=== PATIENT | male | born 1950 | race Caucasian/White ===

== ENCOUNTER 2021-01-01 10:10 | Day surgery (SDC) | payer MEDICARE, BC ==
[~2021-01-01] VITALS: Ht 172.7 cm; Wt 77.2 kg
[2021-01-01] VITALS (10 sets, daily range): BP systolic 125–156; BP diastolic 65–95
[2021-01-01] MEDS: normal saline 1,000 ML IV SCH ×2 (10:55→17:20)
[2021-01-01] MEDS ORDERED: sodium bicarbonate (8.4%) inj. 75 ML in dextrose 5% water 500ml 500 ML IV ONE (10:55)
[2021-01-01] MEDS ORDERED: diphenhydrAMINE 25mg capsule PO PRN (10:55)
[2021-01-01] MEDS ORDERED: verapamil 2.5 mg/ml inj IV ONE (11:25)
[2021-01-01] MEDS ORDERED: fentaNYL/PF 50MCG/1 ML 2ML syringe ONE ×2 (11:25→13:56)
[2021-01-01] MEDS ORDERED: midazolam 1 mg/ML 2ml injection ONE ×4 (11:25→14:11)
[2021-01-01] MEDS ORDERED: LIDOcaine 1% (10mg/ml)w/preservative injection 20ml MDV ONE (11:25)
[2021-01-01] MEDS ORDERED: heparin 1,000 UNITS/NS 500ml 500 ML ONE ×3 (11:26→14:22)
[2021-01-01] MEDS ORDERED: heparin 1,000unit/ml 10ml vial 10 ML ONE (11:26)
[2021-01-01] MEDS ORDERED: iohexol 350 MG/ML 50ML vial IV ONE ×5 (11:26→14:19)
[2021-01-01] MEDS ORDERED: iohexol 350MG/ML 100ml bottle IV ONE ×2 (11:26→12:54)
[2021-01-01] MEDS ORDERED: nitroGLYCERIN-Tridil 50MG/D5W 250 ML IV ONE (11:26)
[2021-01-01 11:49] LABS: BASOPHILS # (AUTO) 0.1 X10'3 (0-0.2); BASOPHILS % (AUTO) 1.5 % (0-1); EOSINOPHILS # (AUTO) 0.2 X10'3 (0-0.9); EOSINOPHILS % (AUTO) 4.1 % (0-6); HEMATOCRIT 47.7 % (42.0-52.0); HEMOGLOBIN 16.1 g/dl (14.0-17.9); LYMPHOCYTES # (AUTO) 1.1 X10'3 (1.1-4.8); LYMPHOCYTES % (AUTO) 21.3 % (21-51); MEAN CORPUSCULAR HGB CONC 33.8 g/dL (33.0-36.5); MEAN CORPUSCULAR VOLUME 91.7 FL (78-98); MONOCYTES # (AUTO) 0.4 X10'3 (0-0.9); MONOCYTES % (AUTO) 7.6 % (2-12); NEUTROPHILS # (AUTO) 3.5 X10'3 (1.8-7.7); NEUTROPHILS % (AUTO) 65.5 % (42-75); PLATELET COUNT 182 X10'3 (140-440); RED CELL DISTRIBUTION WIDTH 13.2 % (11.5-14.5); WHITE BLOOD COUNT 5.3 X10'3 (4.5-11.0)
[2021-01-01 11:55] LABS: ALBUMIN 3.9 G/DL (3.4-5.0); ANION GAP 8 (8-16); BLOOD UREA NITROGEN 21 MG/DL (7-18); BUN/CREATININE RATIO 20.2 (5.4-32.0); CALCIUM 9.4 MG/DL (8.5-10.1); CHLORIDE 104 MMOL/L (99-107); CREATININE 1.04 MG/DL (0.60-1.10); GLUCOSE 95 MG/DL (70-104); MAGNESIUM 2.3 MG/DL (1.5-2.4); POTASSIUM 4.7 MMOL/L (3.5-5.1); SODIUM 141 MMOL/L (135-145); TOTAL CARBON DIOXIDE 28.8 MMOL/L (24-32); eGFR 71 ML/MIN
[2021-01-01] MEDS ORDERED: lidocaine patch (12:24)
[2021-01-01] MEDS ORDERED: BUPR1PAT TOP (12:25)
[2021-01-01] MEDS ORDERED: TRAZ-251 PO (12:25)
[2021-01-01] MEDS ORDERED: ZOLP5TAB8 PO (12:26)
[2021-01-01] MEDS ORDERED: ALPR-624 PO (12:26)
[2021-01-01] MEDS ORDERED: MELA3TAB39 PO (12:27)
[2021-01-01] MEDS ORDERED: DULO-31 PO (12:28)
[2021-01-01] MEDS ORDERED: GABA300C PO (12:29)
[2021-01-01] MEDS ORDERED: ALBU8HFA PO (12:30)
[2021-01-01] MEDS ORDERED: SOTA120T9 PO (12:32)
[2021-01-01] MEDS ORDERED: ALFU10TA10 PO (12:33)
[2021-01-01] MEDS ORDERED: LISI20TA28 PO (12:33)
[2021-01-01] MEDS ORDERED: APIX5TAB3 PO (12:34)
[2021-01-01] MEDS ORDERED: clopidogrel 300mg tablet ONE (14:36)
[2021-01-01] MEDS ORDERED: proCHLORperazine 10 MG/2 ml inj IV PRN (15:10)
[2021-01-01] MEDS ORDERED: ondansetron/PF 4mg/2ml inj IV PRN (15:10)
[2021-01-01] MEDS ORDERED: HYDROcodone/acetaminophen 5mg/325mg tablet PO PRN (15:10)
[2021-01-01] MEDS ORDERED: HYDROcodone/acetaminophen 10/325mg tab PO PRN (15:10)
[2021-01-01] MEDS ORDERED: furosemide 20 MG/2 ML vial IV ONE (16:00)
== END 2021-01-01 18:30 | disposition home or self-care (01) ==
LOC: SSTAY O 10:10
PROVIDERS: ATTEND Internal Medicine Cardiovascular Disease
DX: R94.39 Abnormal result of other cardiovascular function study (principal); I25.119 Atherosclerotic heart disease of native coronary artery with unspecified angina pectoris; I25.5 Ischemic cardiomyopathy; I25.2 Old myocardial infarction; E78.5 Hyperlipidemia, unspecified; I48.91 Unspecified atrial fibrillation; Z87.891 Personal history of nicotine dependence; Z88.8 Allergy status to other drugs, medicaments and biological substances; Z79.899 Other long term (current) drug therapy; Z98.890 Other specified postprocedural states; Z86.010 Personal history of colon polyps; Z80.0 Family history of malignant neoplasm of digestive organs; Z80.1 Family history of malignant neoplasm of trachea, bronchus and lung; Z80.42 Family history of malignant neoplasm of prostate
CPT/HCPCS: 36415; 80048; 83735; 85025; 85610; 93005; 93458; 99152; 99153; C1725; C1751; C1760; C1769; C1874; C1894; C9600; C9601; J1644; J1940; J2001; J2250; J3010; J7030; Q9967; A4620; A6258; J3490

== ENCOUNTER 2021-01-15 08:46 | Day surgery (SDC) | payer MEDICARE, BC ==
[2021-01-15] VITALS (9 sets, daily range): BP systolic 112–143; BP diastolic 51–90
[~2021-01-15] VITALS: Ht 172.7 cm; Wt 75.6 kg
[~2021-01-15 08:46] MED LIST: ALBU8HFA PO; ALFU10TA10 PO; ALPR-624 PO; APIX5TAB3 PO; BUPR1PAT TOP; DULO-31 PO; GABA300C PO; LISI20TA28 PO; MELA3TAB39 PO; SOTA120T9 PO; TRAZ-251 PO; ZOLP5TAB8 PO; lidocaine patch
[2021-01-15] MEDS ORDERED: diphenhydrAMINE 25mg capsule PO PRN (09:20)
[2021-01-15] MEDS ORDERED: ROSU20TA2 PO (09:37)
[2021-01-15] MEDS ORDERED: LISI20TA28 PO (09:37)
[2021-01-15] MEDS ORDERED: EZET10TA48 PO (09:37)
[2021-01-15] MEDS: normal saline 1,000 ML IV SCH ×2 (09:43→14:26)
[2021-01-15 09:50] LABS: EOSINOPHILS # (AUTO) 0.2 X10'3 (0-0.9); EOSINOPHILS % (AUTO) 4.3 % (0-6); HEMATOCRIT 46.5 % (42.0-52.0); HEMOGLOBIN 15.6 g/dl (14.0-17.9); LYMPHOCYTES # (AUTO) 0.9 X10'3 (1.1-4.8); LYMPHOCYTES % (AUTO) 23.4 % (21-51); MEAN CORPUSCULAR HEMOGLOBIN 31.3 PG (27.0-31.0); MEAN CORPUSCULAR HGB CONC 33.6 g/dL (33.0-36.5); MEAN CORPUSCULAR VOLUME 93.1 FL (78-98); MEAN PLATELET VOLUME 7.8 FL (7.4-10.4); MONOCYTES # (AUTO) 0.4 X10'3 (0-0.9); MONOCYTES % (AUTO) 9.3 % (2-12); NEUTROPHILS # (AUTO) 2.4 X10'3 (1.8-7.7); PLATELET COUNT 165 X10'3 (140-440); RED BLOOD COUNT 4.99 X10'6 (4.70-6.10); WHITE BLOOD COUNT 3.9 X10'3 (4.5-11.0)
[2021-01-15 09:52] LABS: ALBUMIN 3.8 G/DL (3.4-5.0); ANION GAP 8 (8-16); BLOOD UREA NITROGEN 16 MG/DL (7-18); BUN/CREATININE RATIO 15.5 (5.4-32.0); CALCIUM 8.6 MG/DL (8.5-10.1); CHLORIDE 108 MMOL/L (99-107); CREATININE 1.03 MG/DL (0.60-1.10); GLUCOSE 99 MG/DL (70-104); MAGNESIUM 2.2 MG/DL (1.5-2.4); POTASSIUM 4.2 MMOL/L (3.5-5.1); SODIUM 142 MMOL/L (135-145); TOTAL CARBON DIOXIDE 26.5 MMOL/L (24-32); eGFR 71 ML/MIN
[2021-01-15] MEDS ORDERED: LIDOcaine 1% (10mg/ml)w/preservative injection 20ml MDV ONE (10:59)
[2021-01-15] MEDS ORDERED: iohexol 350MG/ML 100ml bottle IV ONE ×2 (10:59→11:59)
[2021-01-15] MEDS ORDERED: fentaNYL/PF 50MCG/1 ML 2ML syringe ONE ×3 (10:59→13:14)
[2021-01-15] MEDS ORDERED: heparin 1,000unit/ml 10ml vial 10 ML ONE ×2 (10:59→12:52)
[2021-01-15] MEDS ORDERED: iohexol 350 MG/ML 50ML vial IV ONE ×2 (10:59→11:54)
[2021-01-15] MEDS ORDERED: midazolam 1 mg/ML 2ml injection ONE ×5 (10:59→13:18)
[2021-01-15] MEDS ORDERED: ticagrelor 90mg tablet ONE (13:30)
[2021-01-15] MEDS ORDERED: nitroGLYCERIN 0.4mg SUBLingual tab SL ONE (13:55)
[2021-01-15] MEDS ORDERED: nitroGLYCERIN 0.4mg SUBLingual tab SL PRN (14:15)
[2021-01-15] MEDS ORDERED: OXAZEpam 15mg capsule PO PRN (14:15)
[2021-01-15] MEDS ORDERED: proCHLORperazine 10 MG/2 ml inj IV PRN (14:15)
[2021-01-15] MEDS ORDERED: HYDROcodone/acetaminophen 10/325mg tab PO PRN (14:15)
[2021-01-15] MEDS ORDERED: HYDROcodone/acetaminophen 5mg/325mg tablet PO PRN (14:15)
[2021-01-15] MEDS ORDERED: ondansetron/PF 4mg/2ml inj IV PRN (14:15)
[2021-01-15] MEDS ORDERED: ACETYLCYSTEINE 200 MG/1 ML 4 ML ORAL SOLUTION PO SCH (20:00)
== END 2021-01-15 18:06 | disposition home or self-care (01) ==
LOC: SSTAY O 08:46
PROVIDERS: ATTEND Internal Medicine Cardiovascular Disease
DX: R94.39 Abnormal result of other cardiovascular function study (principal); I25.119 Atherosclerotic heart disease of native coronary artery with unspecified angina pectoris; I48.91 Unspecified atrial fibrillation; E78.5 Hyperlipidemia, unspecified; I25.2 Old myocardial infarction; I10 Essential (primary) hypertension; I25.5 Ischemic cardiomyopathy; Z95.5 Presence of coronary angioplasty implant and graft; Z79.899 Other long term (current) drug therapy; Z87.891 Personal history of nicotine dependence; Z98.890 Other specified postprocedural states; Z86.010 Personal history of colon polyps; Z80.1 Family history of malignant neoplasm of trachea, bronchus and lung; Z80.42 Family history of malignant neoplasm of prostate; Z80.0 Family history of malignant neoplasm of digestive organs; Z88.8 Allergy status to other drugs, medicaments and biological substances
CPT/HCPCS: 36415; 80048; 83735; 85025; 85610; 93005; 93458; 99152; 99153; C1725; C1751; C1760; C1769; C1874; C1892; C1894; C9600; J1644; J2001; J2250; J3010; J7030; Q0163; Q9967; A4620; A6258; C9601

== ENCOUNTER 2023-11-24 06:37 | Day surgery (SDC) | payer MEDICARE, BC ==
[2023-11-24] VITALS (10 sets, daily range): BP systolic 107–119; BP diastolic 59–72; PULSE 63–70; RESP 10–25; TEMP 97.5; O2SAT 92–97
[~2023-11-24] VITALS: Ht 172.7 cm; Wt 76.8 kg
[~2023-11-24 06:37] MED LIST changes: +EZET10TA48 PO; +ROSU20TA2 PO
[2023-11-24] MEDS ORDERED: cefazolin 2gm/D5W 100mL 100 ML IV ONE (07:00)
[2023-11-24 07:31] LABS: BASOPHILS % (AUTO) 0.6 % (0-1); EOSINOPHILS # (AUTO) 0.2 X10'3 (0-0.9); EOSINOPHILS % (AUTO) 3.3 % (0-6); HEMATOCRIT 45.1 % (42.0-52.0); HEMOGLOBIN 15.4 g/dl (14.0-17.9); LYMPHOCYTES # (AUTO) 1.1 X10'3 (1.1-4.8); MEAN CORPUSCULAR HEMOGLOBIN 31.7 PG (27.0-31.0); MEAN CORPUSCULAR HGB CONC 34.2 g/dL (33.0-36.5); MEAN CORPUSCULAR VOLUME 92.5 FL (78-98); MEAN PLATELET VOLUME 8.5 FL (7.4-10.4); MONOCYTES # (AUTO) 0.6 X10'3 (0-0.9); MONOCYTES % (AUTO) 9.3 % (2-12); NEUTROPHILS # (AUTO) 4.2 X10'3 (1.8-7.7); NEUTROPHILS % (AUTO) 68.8 % (42-75); PLATELET COUNT 144 X10'3 (140-440); RED BLOOD COUNT 4.88 X10'6 (4.70-6.10); RED CELL DISTRIBUTION WIDTH 13.3 % (11.5-14.5)
[2023-11-24] MEDS ORDERED: AMIO200T27 PO (07:41)
[2023-11-24] MEDS ORDERED: NITR0.4T51 SL (07:41)
[2023-11-24] MEDS ORDERED: METO-395 PO (07:41)
[2023-11-24] MEDS ORDERED: FURO-150 PO (07:42)
[2023-11-24] MEDS ORDERED: UBID100C16 PO (07:42)
[2023-11-24 07:47] LABS: ALBUMIN 3.9 G/DL (3.4-5.0); ANION GAP 10 (8-16); BLOOD UREA NITROGEN 26 MG/DL (7-18); BUN/CREATININE RATIO 13.5 (10.0-20.0); CALCIUM 8.8 MG/DL (8.5-10.1); CHLORIDE 106 MMOL/L (99-107); CREATININE 1.92 MG/DL (0.60-1.10); GLUCOSE 94 MG/DL (70-104); MAGNESIUM 2.4 MG/DL (1.5-2.4); POTASSIUM 3.7 MMOL/L (3.5-5.1); SODIUM 145 MMOL/L (135-145); TOTAL CARBON DIOXIDE 29.2 MMOL/L (24-32); eCRCL 33 ML/MIN; eGFR 35 ML/MIN
[2023-11-24] MEDS: vancomycin/NS 1 GM ADD-VANTAGE 250 ML X 1 DOSE IV ONE (07:53)
[2023-11-24 08:28] LABS: PROTHROMBIN TIME 10.3 SECONDS (9.0-12.0)
[2023-11-24] MEDS ORDERED: fentaNYL/PF 50MCG/1 ML 2ML syringe ONE (08:41)
[2023-11-24] MEDS ORDERED: midazolam 1 mg/ML 2ml injection ONE ×3 (08:41→10:13)
[2023-11-24] MEDS ORDERED: LIDOCAINE 2%/EPI 1:100,000 inj. Multi-dose 20 ML VIAL ONE (08:41)
[2023-11-24] MEDS ORDERED: iohexol 350 MG/ML 50ML vial IV ONE (08:43)
[2023-11-24] MEDS ORDERED: vancomycin 1,000mg inj ONE (08:46)
[2023-11-24] MEDS ORDERED: HYDROcodone/acetaminophen 10/325mg tab PO PRN (11:55)
[2023-11-24] MEDS: HYDROcodone/acetaminophen 5mg/325mg tablet PO PRN (11:57)
== END 2023-11-24 12:45 | disposition home or self-care (01) ==
LOC: SSTAY O 06:37
PROVIDERS: ATTEND Internal Medicine Cardiovascular Disease
DX: I25.5 Ischemic cardiomyopathy (principal); I50.22 Chronic systolic (congestive) heart failure; N18.4 Chronic kidney disease, stage 4 (severe); I34.0 Nonrheumatic mitral (valve) insufficiency; I73.9 Peripheral vascular disease, unspecified; G47.33 Obstructive sleep apnea (adult) (pediatric); I48.91 Unspecified atrial fibrillation; I25.10 Atherosclerotic heart disease of native coronary artery without angina pectoris; E78.2 Mixed hyperlipidemia; I25.2 Old myocardial infarction; Z79.899 Other long term (current) drug therapy; Z79.01 Long term (current) use of anticoagulants; Z98.890 Other specified postprocedural states; Z86.010 Personal history of colon polyps; Z88.8 Allergy status to other drugs, medicaments and biological substances; Z95.5 Presence of coronary angioplasty implant and graft; Z80.0 Family history of malignant neoplasm of digestive organs; Z80.1 Family history of malignant neoplasm of trachea, bronchus and lung; Z80.42 Family history of malignant neoplasm of prostate
CPT/HCPCS: 33249; 36415; 71045; 80048; 83735; 85025; 85610; 93005; C1777; C1882; C1898; J2250; J3010; J3370; J7030; Q9967; 99152; 99153